=== PATIENT | male | born 1975 | race Caucasian/White ===

== ENCOUNTER → 2024-08-13 08:33 | Outpatient (CLI) | payer OTHER, SELFPAY ==
[2024-08-13 09:32] LABS: COVID-19 CEPHEID 4-PLEX PCR Negative (Negative); Influenza A - CEPHEID Flu A NEGATIVE (NEGATIVE); Influenza B - CEPHEID Flu B NEGATIVE (NEGATIVE); Respiratory Syncytial Virus Negative (Negative)
== END ==
PROVIDERS: Visit Provider Nurse Practitioner Family
DX: J02.9 Acute pharyngitis, unspecified (principal); R05.1 Acute cough
CPT/HCPCS: 0241U; 87070

== ENCOUNTER → 2024-08-13 09:20 | Outpatient (CLI) | payer OTHER, SELFPAY ==
--- NOTE | 2024-08-13 09:21 | DI.US.S_ITS ---
PROCEDURE: US SOFT TISSUE HEAD AND NECK INDICATIONS: mass left neck TECHNIQUE: Real-time scanning was performed of the neck region of interest, with image documentation. COMPARISON: None. FINDINGS: Ultrasound examination of right neck soft tissue inferior and posterior to right submandibular region at patient's reported area of palpable lump shows a 4.6 x 3.3 x 3.7 cm heterogeneously hypoechoic and solid appearing lesion with internal vascularity and suggestion of internal calcifications. There is also a prominent lymph no inferior to right parotid gland measures 2.4 x 1.1 x 1.1 cm in size. Additional smaller lymph nodes also noted along right jugular chain. IMPRESSION: 1. 4.6 x 3.3 x 3.7 cm solid mass seen posterior inferior to right submandibular gland with internal vascularity and calcification. Finding is concerning for left neck soft tissue neoplasm or abnormally enlarged lymph nodes. This lesion is amenable to ultrasound-guided biopsy. 2. Additional enlarged lymph nodes seen in left submandibular region and along left jugular chain as described above concerning for metastatic or reactive inflammatory lymphadenopathy. Dictated by: Remington Henry M.D. on 08/13/2024 at 10:11 Approved by: Remington Henry M.D. on 08/13/2024 at 10:17
== END ==
LOC: US 09:20
PROVIDERS: Referring Provider Nurse Practitioner Family; Visit Provider Nurse Practitioner Family
DX: R22.1 Localized swelling, mass and lump, neck (principal); J02.9 Acute pharyngitis, unspecified; R05.1 Acute cough; R59.0 Localized enlarged lymph nodes
CPT/HCPCS: 0241U; 76536; 87070

== ENCOUNTER → 2024-08-15 08:30 | Outpatient (CLI) | payer OTHER, SELFPAY ==
--- NOTE | 2024-08-15 08:32 | DI.US.S_ITS ---
PROCEDURE: US GUIDE FOR BIOPSY INDICATIONS: Neck mass TECHNIQUE: Written and oral consent were obtained from the patient for the procedure. Patient was laying supine on the ultrasound table with right submandibular region prepped and draped in standard sterile fashion. The skin of right submandibular region was anesthetized using 1% lidocaine. 18 gauge biopsy needle was inserted into patient's known posterior right neck soft tissue mass. 4 specimens were obtained. The needle was subsequently withdrawn, and hemostasis was achieved. No complications. COMPARISON: Ultrasound soft tissue neck dated 08/13/2024. FINDINGS: Specimens were sent to the lab for further evaluation. IMPRESSION: Technically successful ultrasound-guided right submandibular neck mass biopsy. Dictated by: Remington Henry M.D. on 08/15/2024 at 11:42 Approved by: Remington Henry M.D. on 08/15/2024 at 11:44
[2024-08-15 08:45] LABS: Add Manual Diff / Slide Review NO; Basophils Absolute Auto 100 /uL (0-100); Basophils Percent Auto 0.6 % (0-2); Eosinophils Absolute Auto 300 /uL (0-450); Eosinophils Percent Auto 2.6 % (2-4); Hematocrit 45.9 % (41-53); Hemoglobin 15.8 g/dL (13.5-17.5); Lymphocytes Absolute Auto 2300 /uL (1100-4500); Lymphocytes Percent Auto 16.9 % (25-40); Mean Corpuscular HGB Conc 34.4 % (30-36); Mean Corpuscular Hemoglobin 27.2 PG (26-34); Mean Corpuscular Volume 78.9 fL (80-100); Monocytes Absolute Auto 900 /uL (0-900); Monocytes Percent Auto 6.5 % (3-14); Neutrophils Absolute Auto 9800 /uL (1500-7000); Neutrophils Percent Auto 73.4 % (50-75); Platelet Count 360 X10^3/uL (150-400); Red Blood Cell Count 5.81 X10^6/uL (4.5-5.9); Red Cell Distribution Width 13.6 % (11.6-14.8); White Blood Cell Count 13.3 X10^3/uL (4.5-11.0)
[2024-08-15 10:13] LABS: Alanine Aminotransferase 22 IU/L (<50); Albumin 4.5 g/dL (3.5-5.0); Albumin Globulin Ratio 1.5 (1.0-2.8); Alkaline Phosphatase 86 U/L (38-126); Aspartate Aminotransferase 26 IU/L (17-59); BUN Creatinine Ratio 13.3 (6-22); Bilirubin Total 0.9 mg/dL (0.2-1.3); Blood Urea Nitrogen 12 mg/dL (9-20); Calcium 9.6 mg/dL (8.4-10.2); Carbon Dioxide 31 mmol/L (22-32); Chloride 99 mmol/L (98-107); Estimated Glomerular Filt Rate > 60 mL/min (>60); Globulin 3.1 g/dL (1.7-4.1); Glucose 105 mg/dL (70-100); HEMOLYSIS < 15 (0-50); Potassium 3.5 mmol/L (3.4-5.1); Sodium 142 mmol/L (137-145); Total Protein 7.6 g/dL (6.3-8.2)
--- NOTE | 2024-08-15 10:25 | PATH_ITS ---
[facility] Accession Number: [id number] No. of containers..01 Tissue . 01 Material submitted: . neck - RT SUP NECK MASS . 01 Diagnosis: RIGHT SUPERIOR NECK MASS, NEEDLE CORE BIOPSIES: Polypmorphous neoplasm, consistent with pleomorphic adenoma. No malignant features identified; please see comment. MRV 08/19/2024 1557 Local . 01 Comment: Biopsy sampling of a 4.6 cm mass is noted. Biopsies from this lesion show features of pleomorphic adenoma with no malignancy identified. That said, definitive classification of the lesion and exclusion of unsampled malignancy require complete excision of the lesion. . As part of routine cloth tester quality, Dr. Padilla has reviewed this case and agrees with the impression above. The findings in this case were discussed between Dr. Wagner and Dr. Crawford on 08/19/2024 at 10:30 a.m. . . 01 Electronically signed: . Prem Wagner MD, PhD, Pathologist NPI- [id number] . 01 Gross description: . RT SUP NECK MASS: Received in formalin are 5 fragment(s) of alex, soft tissue measuring 0.3 x 0.1 x 0.1 cm to 1.2 x 0.1 x 0.1 cm submitted entirely in 2 cassette(s) /GERHARD 08/15/2024 2310 Local . 01 Microscopic: . Sections are of a proliferation of epithelioid cells in a trabecular growth pattern with foci of glandular elements. The background consists of a hypocellular stroma with myxoid features. No significant nuclear atypia or mitotic activity is seen, and necrosis is absent. 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 . 01 Pathologist provided ICD-10: R22.1, D37.039 . 01 CPT . 759964 Specimen Comment: A courtesy copy of this report has been sent to [phone] Performed at: [address] [facility] [address], [place], [place] [id number] MD Guilherme Ayala MD Phone: [phone]
== END ==
PROVIDERS: Referring Provider Nurse Practitioner Family; Visit Provider Nurse Practitioner Family
DX: R22.1 Localized swelling, mass and lump, neck (principal)
CPT/HCPCS: 36415; 76942; 80053; 85025

== ENCOUNTER → 2024-09-22 09:31 | Outpatient (CLI) | payer OTHER, SELFPAY ==
--- NOTE | 2024-09-22 09:32 | DI.CT.S_ITS ---
PROCEDURE: CT SOFT TISSUE NECK W CON INDICATIONS: MASS OF NECK AND SUBMANDIBULAR REGION TECHNIQUE: After the administration of intravenous contrast, 3.0 mm axial sections acquired from the sella to the aortic arch. Additional oblique axial 3.0 mm sections acquired through the pharynx. 3 mm thick coronal and sagittal reformats were generated. For radiation dose reduction, the following was used: automated exposure control. COMPARISON: [facility], , SOFT TISSUE HEAD AND NECK, 08/13/2024, 9:46. FINDINGS: Image quality: Excellent. Bone: No acute fracture or dislocation. Alignment: Straightening of the cervical lordosis. Muscles: Overall muscle bulk is preserved. Neck spaces: 2.9 x 4.4 x 2.4 cm heterogenous (predominantly hypodense) mass with central calcification in the right level 1 B station, splaying the hyoglossus and mylohyoid musculature (09/26; ) and posteriorly displacing the right submandibular gland. The parotid, chemical machine tender, submandibular, parapharyngeal, pharyngeal mucosal, retropharyngeal, and perivertebral spaces are otherwise within normal limits. Orbits: The visualized orbits are within normal limits. Thyroid gland: Within normal limits. Airway: Visualized trachea within normal limits. Esophagus: No abnormal mural thickening of the visualized esophagus. Lymph nodes: No medial supraclavicular lymphadenopathy. Multiple bilateral cervical lymph nodes, the largest of which is a right level IIa 1.2 cm short axis node (/). Vessels: No aneurysmal dilatation of the visualized vasculature. Lung apices: No pneumothorax in the visualized lung apices. Sinuses: Visualized paranasal sinuses, mastoid air cells, and middle ear cavities are clear. Dentition: Within normal limits. Soft tissues: No acute abnormality. IMPRESSION: Right level 1 B station 4.4 cm mass, the differential diagnosis for which would include a necrotic lymph node from a metastatic disease of unknown primary versus a salivary gland tumor or lymphoma. Please refer to the biopsy results for the ultrasound-guided biopsy performed on 08/15/2024. Dictated by: Leroy Wing M.D. on 09/22/2024 at 14:25 Approved by: Leroy Wing M.D. on 09/22/2024 at 14:39
== END ==
LOC: CT 09:31
PROVIDERS: PCP Family Medicine; Referring Provider Otolaryngology; Visit Provider Otolaryngology
DX: R22.1 Localized swelling, mass and lump, neck (principal); R22.0 Localized swelling, mass and lump, head
CPT/HCPCS: 70491; Q9967